=== PATIENT | female | born 1945 | race Caucasian/White ===

== ENCOUNTER → 2017-03-13 | Outpatient (CLI) | payer MEDICARE, OTHER ==
[~2017-03-13] MED LIST: ARICEPT10 MG PO; CALCIUM600 MG PO; CARAFATE1 GM/10 ML PO; CINNAMON500 MG PO; COCONUT OIL PO; ESSENTIAL DAIL1 EACH PO; FISH OIL1 GM PO; FLUOROMETHOLONE5 ML EYEBOTH; HEALTHYLAX17 GM PO; NAMENDA XR28 MG PO; PREVAGEN PO; PROTONIX40 MG PO; VENLAFAXINE HC150 MG PO; VITAMIN B122500 MCG PO; VITAMIN C500 M1 PO; VITAMIN D31000 UNI1 PO; VITAMIN E400 UNI2 PO; [UNRECOGNIZED DRUG - OTHER] PO; [UNRECOGNIZED DRUG - OTHER] PO
== END | disposition short-term general hospital (02) ==
LOC: CLNEUR 02-20 13:34
DX: G31.84 Mild cognitive impairment of uncertain or unknown etiology (principal); I10 Essential (primary) hypertension; K59.00 Constipation, unspecified; F32.9 Major depressive disorder, single episode, unspecified; E78.00 Pure hypercholesterolemia, unspecified; M19.90 Unspecified osteoarthritis, unspecified site; Z87.891 Personal history of nicotine dependence

== ENCOUNTER 2017-08-12 16:20 | Observation (INO) | payer MEDICARE, OTHER ==
[~2017-08-12] VITALS: Ht 167.6 cm; Wt 63.6 kg
[~2017-08-12 16:20] MED LIST changes: -CINNAMON500 MG PO; -VITAMIN C500 M1 PO; -[UNRECOGNIZED DRUG - OTHER] PO
[2017-08-12] MEDS ORDERED: VITAMIN C500 M1 PO (16:51)
[2017-08-13] MEDS ORDERED: [UNRECOGNIZED DRUG - OTHER] PO (08:57)
[2017-08-13] MEDS ORDERED: COCONUT OIL PO (08:58)
[2017-08-13] MEDS ORDERED: CINNAMON500 MG PO (08:59)
[2017-08-13] MEDS ORDERED: CALCIUM600 MG PO (09:01)
[2017-08-13] MEDS ORDERED: PROTONIX40 MG PO (13:37)
== END 2017-08-13 16:23 | disposition short-term general hospital (02) ==
LOC: OBS 16:20 → IP 16:20
PROVIDERS: ADMIT Family Medicine
DX: R10.11 Right upper quadrant pain (principal); G31.84 Mild cognitive impairment of uncertain or unknown etiology; Z98.84 Bariatric surgery status; Z79.899 Other long term (current) drug therapy
CPT/HCPCS: G0378; G0379